=== PATIENT | male | born 1975 | race Caucasian/White ===

== ENCOUNTER → 2017-05-08 | Outpatient (CLI) | payer OTHER ==
--- NOTE | 2017-05-08 12:42 | US ---
EXAMINATION TYPE: US scrotum with doppler. DATE OF EXAM: 05/08/2017 COMPARISON: NONE CLINICAL HISTORY: 41-year-old male N50.81 TESTICULAR PAIN. TECHNIQUE: Grayscale and color Doppler Duplex imaging performed of the scrotum. FINDINGS: TESTICLES: Right Testicle: 4.0 x 2.0 x 2.5 cm Left Testicle: 3.7 x 2.0 x 2.4 cm. Incidental solitary punctate calcification in the left testicle li raquel of no clinical significance. Testicles are relatively symmetric with homogeneous echotexture. Satisfactory arterial venous flow on both sides. EPIDIDYMIS HEAD: Right Epididymis: 0.9 cm Left Epididymis: 0.9 cm Presence of hydroceles: The steam powerplant supervisor reports that no significant hydrocele is present. Image with time stamp 10:11:[id number] suggests that there is at least a small left hydrocele. Presence of varicoceles: no There is mild scrotal skin thickening. IMPRESSION: 1. Mild swelling of the scrotal skin. 2. Images suggest that there is a small left hydrocele. The steam powerplant supervisor reports that no significant h ydrocele was seen. 3. No sonographic evidence for testicular torsion or epididymoorchitis.
== END | disposition home or self-care (01) ==
LOC: RADUSWWP 09:37
PROVIDERS: ATTEND Internal Medicine
DX: N50.89 Other specified disorders of the male genital organs (principal)
CPT/HCPCS: 76870; 93975

== ENCOUNTER 2017-05-20 08:45 | Day surgery (SDC) | payer SELFPAY ==
[2017-05-19 10:50] VITALS: BMI 40.1
[~2017-05-20 08:45] MED LIST: LACTATED RINGERS 1,000 ML IV SCH
[2017-05-20] MEDS ORDERED: LIDOCAINE 1% 20 ML VIAL (10MG/ML) FOR IV START INTRADERMA ONE (09:24)
[2017-05-20 09:28] VITALS: RESP 18; TEMP 98.2
[2017-05-20] MEDS ORDERED: PROPOFOL 10 MG/ML 20 ML VIAL IV ONE (10:02)
[2017-05-20] MEDS ORDERED: LIDOCAINE 1% INJ 10MG/ML (20 ML MDV) ONE (10:02)
--- NOTE | 2017-05-20 10:22 | P.PCN ---
Date of Procedure: 05/20/17 Procedure(s) Performed: Brief history: Patient is a pleasant 41-year-old white male, scheduled for an elective upper endoscopy as well as colonoscopy as a part of evaluation of dysphagia, globus sensation and intermittent rectal bleeding Procedure performed: Esophagogastroduodenoscopy with biopsy Colonoscopy Preoperative diagnosis: Dysphagia/globus sensation Rectal bleeding Anesthesia: [facility] – [place] Procedure: After informed consent was obtained from the patient was brought into the endoscopy unit and IV sedation was administered by anesthesia under continuous monitoring. Initially upper endoscopy was done. The Olympus GF 160 video endoscope was inserted inserted into the mouth and esophagus intubated without any difficulty and was gradually advanced into the stomach and duodenum and carefully examined. The bulb and second part of the duodenum appeared normal. The scope was then withdrawn into the stomach adequately insufflated with air and upon careful examination the antrum had patchy areas of erythema and biopsies were done from this area. The body, cardia and fundus appeared normal. The scope was then withdrawn into the esophagus. The GE junction was located at 40 cm to the incisors. There were superficial erosions and one ulceration at the GE junction consistent with LA grade C reflux esophagitis. Small hiatal hernia noted. Rest of the esophagus appeared normal. Patient tolerated the procedure well. At this time the patient continued to remain sedation. Initial digital rectal examination was normal. Olympus CF 160 video colonoscope was then inserted into the rectum and gradually advanced to the cecum without any difficulty. Careful examination was performed as the scope was gradually being withdrawn. The prep was excellent. The cecum, ascending colon, transverse colon, descending colon, sigmoid colon and rectum appeared normal. Retroflexion was performed in the rectum andsmall internal hemorrhoidsre noted. Patient tolerated the procedure well. Impression: 1. Upper endoscopy revealed mild antral gastritis, LA grade C reflux esophagitis and a small hiatal hernia. no evidence of esophageal stricture. 2. Colonoscopy revealed small internal hemorrhoids but no evidence of colitis or colorectal neoplasia Recommendations: Findings of this examination were discussed with the patient as well as his family. He was advised to follow with the biopsy results. He was given a prescription for Prilosec 20 mg daily half hour before breakfast and follow antireflux measures.
[2017-05-20 10:47] VITALS: BP 122/79; PULSE 78
== END 2017-05-20 11:13 | disposition home or self-care (01) ==
LOC: ORWHC2ENDO 08:45
PROVIDERS: ATTEND Internal Medicine Gastroenterology
DX: K29.50 Unspecified chronic gastritis without bleeding (principal); K64.8 Other hemorrhoids; K62.5 Hemorrhage of anus and rectum; K44.9 Diaphragmatic hernia without obstruction or gangrene; F45.8 Other somatoform disorders; K21.0 Gastro-esophageal reflux disease with esophagitis; F41.9 Anxiety disorder, unspecified; F31.9 Bipolar disorder, unspecified; F43.10 Post-traumatic stress disorder, unspecified; F25.9 Schizoaffective disorder, unspecified; Z79.1 Long term (current) use of non-steroidal anti-inflammatories (NSAID); Z88.8 Allergy status to other drugs, medicaments and biological substances; Z91.040 Latex allergy status
CPT/HCPCS: 88305; 45378; 43239; J2001; J2704

== ENCOUNTER 2017-06-01 16:16 | Emergency (ER) | payer SELFPAY ==
[2017-06-01 17:06] VITALS: BP 118/72; PULSE 97; RESP 18; TEMP 97.5
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
--- NOTE | 2017-06-01 17:30 | XR ---
EXAMINATION TYPE: XR ribs LT w pa chest xray DATE OF EXAM: 06/01/2017 COMPARISON: 08/02/2013 HISTORY: Cough TECHNIQUE: 5 views FINDINGS: Heart and mediastinum are normal. Lungs are clear of infiltrate. There is no sign of pleura l effusion or pneumothorax. The left ribs appear intact. There is no sign of rib fracture. IMPRESSION: Normal chest. Normal left ribs. Chest is stable compared to old exam.
== END 2017-06-01 17:57 | disposition home or self-care (01) ==
LOC: EC 16:16
DX: S29.011A Strain of muscle and tendon of front wall of thorax, initial encounter (principal); I25.2 Old myocardial infarction; F17.200 Nicotine dependence, unspecified, uncomplicated; Z79.1 Long term (current) use of non-steroidal anti-inflammatories (NSAID); Z88.8 Allergy status to other drugs, medicaments and biological substances; Z91.040 Latex allergy status
CPT/HCPCS: 99284